=== PATIENT | female | born 1975 | race African-American/Black ===

== ENCOUNTER 2021-02-22 18:41 | Emergency (ER) | payer OTHER, MEDICAID ==
[~2021-02-22] VITALS: Ht 167.6 cm; Wt 81.7 kg
[2021-02-22] MEDS ORDERED: PROAIR HFA8.5 GM INH (22:47)
[2021-02-22] MEDS ORDERED: MEDROLDOSEPACK PO (22:47)
[2021-02-22] MEDS ORDERED: APAP W/CODEINE1 TA2 PO (23:16)
[2021-02-22 23:31] VITALS: BP 128/92
--- NOTE | 2021-02-23 11:18 | EKG ---
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
== END 2021-02-22 23:32 | disposition home or self-care (01) ==
LOC: M.ERS 18:41
DX: J06.9 Acute upper respiratory infection, unspecified (principal)